=== PATIENT | male | born 1960 | race Caucasian/White ===

== ENCOUNTER 2023-09-29 14:10 | Emergency (ER) | payer OTHER ==
[2023-09-29 15:04] VITALS: BP 126/92; PULSE 71; RESP 16; TEMP 99; BMI 25.2
[2023-09-29] MEDS ORDERED: DIPHTH,PERTUSS(ACELL),TET 0.5 ML DISP.SYRIN IM ONE (15:09)
[2023-09-29] MEDS: DIPHTH,PERTUSS(ACELL),TET 0.5 ML DISP.SYRIN IM ONE (15:26)
[2023-09-29] MEDS ORDERED: ACETAMINOPHEN 500 MG TABLET (FP) PO ONE (16:31)
[2023-09-29] MEDS ORDERED: ACETAMINOPHEN 500 MG TABLET (FP) ONE (16:32)
== END 2023-09-29 16:28 | disposition home or self-care (01) ==
LOC: FER 14:10
PROC: 3E0234Z Introduction of Serum, Toxoid and Vaccine into Muscle, Percutaneous Approach (ICD-10-PCS; principal; 2023-09-29)
DX: S62.664A Nondisplaced fracture of distal phalanx of right ring finger, initial encounter for closed fracture (principal); S61.210A Laceration without foreign body of right index finger without damage to nail, initial encounter; W20.8XXA Other cause of strike by thrown, projected or falling object, initial encounter; Z23 Encounter for immunization
CPT/HCPCS: 73130-TC-RT-FY; 90715; 99283-25